=== PATIENT | male | born 1950 | race Caucasian/White ===

== ENCOUNTER 2016-11-20 13:38 | Inpatient (IN) | payer OTHER ==
[~2016-11-20] VITALS: Ht 167.6 cm; Wt 86.2 kg
[~2016-11-20 13:38] MED LIST: INSU1.2I SQ
[2016-11-20 13:40] VITALS: BP 182/88; PULSE 72; RESP 20; TEMP 98.5; O2SAT 99
--- NOTE | 2016-11-20 14:23 | PD ---
Physical Exam Time Seen by Provider: 14:20 Narrative 66 y/o male W/ left flank pain starting this AM. multiple kidney stone in the past, this feels similar. Endorses nausea, chills. Denies testicular/scrotal pain, dysuria. VSS Seen at triage desk. Awaiting bed placement. Data Data Last Documented VS Vital Signs Date Time Temp Pulse Resp B/P Pulse Ox O2 Delivery O2 Flow Rate FiO2 11/20/16 13:40 98.5 72 20 182/88 99 Room Air [facility] Medical Record Reviewed: Yes Supervised Visit with YASMINE: Myron Maharaj November 20, 2016 14:22
[2016-11-20] MEDS ORDERED: SODIUM CHLOR 0.9% 1000 ML INJ 1,000 ML IV SCH (16:48)
--- NOTE | 2016-11-20 16:53 | PD ---
HPI Chief Complaint: Flank/Kidney Pain Time Seen by Provider: 16:50 Travel History International Travel<30 days: No Contact w/Intl Traveler<30days: No Traveled to known affect area: No History of Present Illness HPI 66-year-old male presents to the emergency department for evaluation of left flank pain that started this morning. He states he had a minimal discomfort in his back yesterday which she attributed of possibly sleeping wrong, but started with worsening pain today. He does have a history of obstructive kidney stones with hydronephrosis. He states he does not currently have a urologist. Patient reports diaphoresis and chills, but no documented fevers. No chest pain or shortness of breath. He does have a history of a bowel perforation after with colostomy. He states reversal was attempted several times, but he still has colostomy. Patient states that he passes stones all the time, but this one is more severe than normal. Patient does have history diabetes. PMH of kidney stones, status post cystoscopy with lithotripsy and stent 2015, aortic valve replacement for severe aortic stenosis with bioprosthetic heart valve, ileostomy, hypertension, type 2 diabetes, multiple bowel surgeries. PFSH Past Medical History High Cholesterol: Yes Diabetes: Yes Patient Takes Glucophage: No Gastrointestinal Disorders: Yes (HX COLON RESECTION WITH COLOSTOMY/ ILEOSTOMY) Hypertension: Yes Implanted Vascular Access Dvce: Yes Kidney Stones: Yes Past Surgical History Abdominal Surgery: Yes (Previous ileostomy) Body Medical Devices: cardiac stent pt stated it has since been removed Cardiac Surgery: Yes (Stent and valve replacement) Genitourinary Surgery: Yes (mutiple lithotrpsy) Other Surgery: Yes (COLOSTOMY CLOSURE 06/02) Social History Alcohol Use: Yes (OCCASIOANL) Tobacco Use: Yes (07/26 PPD) Substance Use: No Allergies-Medications (Allergen,Severity, Reaction): Coded Allergies: No Known Allergies (Verified , 11/20/16) Reported Meds & Prescriptions Reported Meds & Active Scripts Active Reported Bystolic (Nebivolol) 10 Mg Tab 10 Mg PO DAILY PRN Tougenia Solostar Pen Inj (Insulin Glargine) 300 Unit/Ml Pen 50 Units SQ DAILY Review of Systems Except as stated in HPI: all other systems reviewed are Neg Physical Exam Narrative GENERAL: Well-nourished, well-developed male patient, ambulatory. Afebrile. SKIN: Focused skin assessment warm/dry. HEAD: Normocephalic. Atraumatic. EYES: No scleral icterus. No injection or drainage. NECK: Supple, trachea midline. No JVD or lymphadenopathy. CARDIOVASCULAR: Regular rate and rhythm without murmurs, gallops, or rubs. RESPIRATORY: Breath sounds equal bilaterally. No accessory muscle use. Lungs sounds are clear to auscultation. GASTROINTESTINAL: Abdomen soft and nondistended. Patient has colostomy noted to right lower quadrant. He has mild tenderness over left upper quadrant. MUSCULOSKELETAL: No cyanosis, or edema. BACK: Nontender without obvious deformity. Left CVA tenderness. Data Data Last Documented VS Vital Signs Date Time Temp Pulse Resp B/P Pulse Ox O2 Delivery O2 Flow Rate FiO2 11/20/16 13:40 98.5 72 20 182/88 99 Room Air Orders Hydromorphone Pf Inj (Dilaudid Pf Inj) (11/20/16 17:00) Complete Blood Count With Diff (11/20/16 16:48) Comprehensive Metabolic Panel (11/20/16 16:48) Lipase (11/20/16 16:48) Urinalysis - C+S If Indicated (11/20/16 16:48) Ct Abd/Pel W/O Iv Contrast (11/20/16 16:48) Iv Access Insert/Monitor (11/20/16 16:48) Ecg Monitoring (11/20/16 16:48) Oximetry (11/20/16 16:48) Ondansetron Inj (Zofran Inj) (11/20/16 17:00) Sodium Chlor 0.9% 1000 Ml Inj (Ns 1000 M (11/20/16 16:48) Sodium Chloride 0.9% Flush (Ns Flush) (11/20/16 17:00) Consult Urology (11/20/16 ) (Hub Use Only)Inp Phy Cons/Ref (11/20/16 ) Hydromorphone Pf Inj (Dilaudid Pf Inj) (11/20/16 19:15) Tamsulosin (Flomax) (11/20/16 19:15) Admit Order (Ed Use Only) (11/20/16 19:19) Labs Laboratory Tests Test 11/20/16 11/20/16 16:50 17:00 White Blood Count 10.8 TH/MM3 Red Blood Count 4.63 MIL/MM3 Hemoglobin 14.3 GM/DL Hematocrit 41.7 % Mean Corpuscular Volume 90.2 FL Mean Corpuscular Hemoglobin 31.0 PG Mean Corpuscular Hemoglobin 34.4 % Concent Red Cell Distribution Width 15.2 % Platelet Count 143 TH/MM3 Mean Platelet Volume 10.3 FL Neutrophils (%) (Auto) 90.3 % Lymphocytes (%) (Auto) 4.4 % Monocytes (%) (Auto) 4.8 % Eosinophils (%) (Auto) 0.2 % Basophils (%) (Auto) 0.3 % Neutrophils # (Auto) 9.7 TH/MM3 Lymphocytes # (Auto) 0.5 TH/MM3 Monocytes # (Auto) 0.5 TH/MM3 Eosinophils # (Auto) 0.0 TH/MM3 Basophils # (Auto) 0.0 TH/MM3 CBC Comment DIFF FINAL Differential Comment Sodium Level 131 MEQ/L Potassium Level 5.3 MEQ/L Chloride Level 102 MEQ/L Carbon Dioxide Level 21.1 MEQ/L Anion Gap 8 MEQ/L Blood Urea Nitrogen 24 MG/DL Creatinine 2.10 MG/DL Estimat Glomerular Filtration 32 ML/MIN Rate Random Glucose 241 MG/DL Calcium Level 9.0 MG/DL Total Bilirubin 0.6 MG/DL Aspartate Amino Transf 31 U/L (AST/SGOT) Alanine Aminotransferase 42 U/L (ALT/SGPT) Alkaline Phosphatase 67 U/L Total Protein 7.9 GM/DL Albumin 4.1 GM/DL Lipase 181 U/L Urine Color YELLOW Urine Turbidity CLEAR Urine pH 5.0 Urine Specific [place] 1.015 Urine Protein 30 mg/dL Urine Glucose (UA) 1000 mg/dL Urine Ketones NEG mg/dL Urine Occult Blood MOD Urine Nitrite NEG Urine Bilirubin NEG Urine Urobilinogen LESS THAN 2.0 MG/DL Urine Leukocyte Esterase NEG Urine RBC 4 /hpf Urine WBC LESS THAN 1 /hpf Urine Squamous Epithelial <1 /hpf Cells Urine Hyaline Casts 1 /lpf Urine Mucus FEW /lpf Microscopic Urinalysis Comment CULT NOT INDICATED MDM Medical Decision Making Medical Screen Exam Complete: Yes Emergency Medical Condition: Yes Medical Record Reviewed: Yes Interpretation(s) Last Impressions Abdomen/Pelvis CT 11/20/16 7048 Signed Impressions: Service Date/Time: Sunday, November 20, 2016 17:51 - CONCLUSION: 1. 1 cm distal left ureteral stone with obstruction. The stone is 2 cm from the UVJ. 2. Nonobstructing right renal calculi. 3. 1.3 cm nodular area of parenchymal consolidation is seen within the left lung base on the very first image of this study. This is incompletely seen. I would suggest a follow up CT of the thorax in 2-3 months. 4. Hepatic steatosis. 5. Prior granulomatous disease. Juancarlos Finley Jr., MD Differential Diagnosis Nephrolithiasis versus urolithiasis versus hydronephrosis Narrative Course 66-year-old male with a past medical history of kidney stones presents to the emergency department for evaluation of left flank pain started today. CBC, CMP , lipase, UA are ordered and pending. CT of the abdomen/pelvis without contrast is ordered and pending. CBC shows no acute abnormality. CMP shows hyperkalemia 5.3, BUN 24, creatinine 2.10, glucose 241. Lipase is 181. UA shows 1000 glucose, moderate occult blood , [address] abdomen/pelvis shows 1 cm distal left ureteral stone with obstruction. The stone is 2 cm from the UVJ. 2. Nonobstructing right renal calculi. 3. 1.3 cm nodular area of parenchymal consolidation is seen within the left lung base on the very first image of this study. This is incompletely seen. I would suggest a follow up CT of the thorax in 2-3 months. 4. Hepatic steatosis. 5. Prior granulomatous disease. Patient is instructed to follow up with primary care physician regarding left lung nodular area. Urology is paged. I spoke with Dr. Grimes, librarian special collections with urology, who will consult on the patient. He would like the patient to be well hydrated and pain control. He believes the patient may pass the stone due to significant history of stones. [facility]. Dr. Hogan accepted admission. Diagnosis Primary Impression: Obstruction of left ureteropelvic junction (UPJ) due to stone Admitting Information Admitting Physician Requests: Admit Jessie Bolden November 20, 2016 16:53
[2016-11-20] MEDS ORDERED: SODIUM CHLORIDE 0.9% FLUSH 10 ML FLUSH IV FLUSH PRN ×2 (17:00→22:30)
[2016-11-20] MEDS ORDERED: ONDANSETRON HCL 4 MG/2 ML VIAL IVP ONE (17:00)
[2016-11-20] MEDS ORDERED: HYDROmorphone HCL PF 1 MG/ML VIAL IV PUSH ONE ×2 (17:00→19:15)
[2016-11-20 17:16] LABS: AUTOMATED NEUTROPHIL # 9.7 TH/MM3 (1.8-7.7); BASOPHIL % 0.3 % (0.0-2.0); EOSINOPHIL % 0.2 % (0.0-4.0); HEMATOCRIT 41.7 % (39.0-51.0); HEMO FLAGS DIFF FINAL; LYMPH % 4.4 % (9.0-44.0); LYMPHOCYTE # 0.5 TH/MM3 (1.0-4.8); MEAN CELL VOLUME 90.2 FL (80.0-100.0); MEAN CORPUSCULAR HGB CONC 34.4 % (32.0-36.0); MONO % 4.8 % (0.0-8.0); NEUT % 90.3 % (16.0-70.0); PLATELET COUNT 143 TH/MM3 (150-450); RED BLOOD COUNT 4.63 MIL/MM3 (4.50-5.90); RED CELL DISTRIBUTION WIDTH 15.2 % (11.6-17.2); WHITE BLOOD COUNT 10.8 TH/MM3 (4.0-11.0)
[2016-11-20 17:22] LABS: BLOOD, URINE MOD (NEG); GLUCOSE,URINE 1000 mg/dL (NEG); HYALINE CAST, URINE 1 /lpf (RARE); KETONE, URINE NEG (NEG); MUCUS URINE FEW /lpf (OCC); NITRITE,URINE NEG (NEG); SQUAMOUS EPITHELIAL CELL URINE <1 /hpf (0-5); URINE COLOR YELLOW (YELLW/STRAW)
[2016-11-20 17:23] LABS: COMMENT (UR) CULT NOT INDICATED; CULTURE IF INDICATED CULT NOT INDICATED
[2016-11-20 17:35] LABS: ALKALINE PHOSPHATASE 67 U/L (45-117); TOTAL BILIRUBIN ADULT 0.6 MG/DL (0.2-1.0)
[2016-11-20 17:39] LABS: ALT (GPT) 42 U/L (12-78); ANION GAP 8 MEQ/L (5-15); AST (GOT) 31 U/L (15-37); BICARBONATE 21.1 MEQ/L (21.0-32.0); BLOOD UREA NITROGEN 24 MG/DL (7-18); CHLORIDE 102 MEQ/L (98-107); GLOMERULAR FILTRATION RATE 32 ML/MIN (>89); POTASSIUM 5.3 MEQ/L (3.5-5.1); SODIUM (NA) 131 MEQ/L (136-145)
[2016-11-20] MEDS ORDERED: BYST10TA2 PO (17:47)
--- NOTE | 2016-11-20 18:07 | RADRPT ---
EXAM DATE/TIME: 11/20/2016 17:51 [facility] COMPARISON: CT ABDOMEN & PELVIS W/O CONTRAST, October 14, 2015, 17:16. CT ABDOMEN & PELVIS W/O CONTRAST, January 27, 2016, 19:37. INDICATIONS : Left flank pain with nausea. ORAL CONTRAST: No oral contrast ingested. RADIATION DOSE: 17.36 CTDIvol (mGy) MEDICAL HISTORY : Cardiovascular disease. Hypertension. Diabetes mellitus type 2. SURGICAL HISTORY : None. ENCOUNTER: Initial ACUITY: 1 day PAIN SCALE: 8/10 LOCATION: Left flank TECHNIQUE: Volumetric scanning of the abdomen and pelvis was performed. Using automated exposure control and ad justment of the mA and/or kV according to patient size, radiation dose was kept as low as reasonably achievable to obtain optimal diagnostic quality images. FINDINGS: LOWER LUNGS: Calcified granulomas are seen involving the lung bases bilaterally. Mild bronchiectasis observed as w ell. A rounded area of parenchymal consolidation is seen on the very first image of the exam. This me asures 1.3 cm in diameter. The heart is mildly enlarged. No pericardial effusion. Mild coronary arter y atherosclerotic calcifications. LIVER: The liver is diffusely low in attenuation. A 2.5 cm cyst is long-term stable adjacent to the falcifor m ligament. Hounsfield units are 5. No mass or ductal dilatation. Gallbladder is well distended but w ithout pericholecystic fluid or gallbladder wall thickening. No calcified stones. Focal fatty sparing is seen adjacent to the gallbladder fossa. SPLEEN: Normal size without lesion. PANCREAS: Within normal limits. KIDNEYS: There is a 1 cm distal left ureteral stone occurring 2 cm from the UVJ. This results in moderate hydr onephrosis and hydroureter. There is perinephric stranding on the left without abscess. Bilateral luigi al calculi are observed. These are nonobstructing on the right. Scattered 1-2 mm stones are seen on t he right. On the left the largest stone measures 7 mm within the lower pole. ADRENAL GLANDS: Within normal limits. VASCULAR: There is no aortic aneurysm. BOWEL/MESENTERY: Near-complete hemicolectomy. Right lower quadrant ileostomy. No free air or free fluid. ABDOMINAL WALL: Within normal limits. RETROPERITONEUM: There is no lymphadenopathy. BLADDER: No wall thickening or mass. REPRODUCTIVE: Within normal limits. INGUINAL: There is no lymphadenopathy or hernia. MUSCULOSKELETAL: Within normal limits for patient age. CONCLUSION: 1. 1 cm distal left ureteral stone with obstruction. The stone is 2 cm from the UVJ. 2. Nonobstructing right renal calculi. 3. 1.3 cm nodular area of parenchymal consolidation is seen within the left lung base on the very fir st image of this study. This is incompletely seen. I would suggest a follow up CT of the thorax in 2- 3 months. 4. Hepatic steatosis. 5. Prior granulomatous disease. Juancarlos Finley Jr., MD on November 20, 2016 at 18:00 Board Certified Radiologist. This report was verified electronically.
[2016-11-20] MEDS ORDERED: TAMSULOSIN HCL 0.4 MG CAP PO ONE (19:15)
[2016-11-20 20:40] VITALS: BP 145/88; PULSE 93; RESP 18; O2SAT 98
[2016-11-20 20:41] VITALS: O2SAT 98
[2016-11-20] MEDS ORDERED: BISACODYL 10 MG SUPP RECTAL PRN (22:30)
[2016-11-20] MEDS ORDERED: ONDANSETRON HCL 4 MG/2 ML VIAL IVP PRN (22:30)
[2016-11-20] MEDS ORDERED: NEBIVOLOL 10 MG TAB PO PRN (22:30)
[2016-11-20] MEDS ORDERED: NALOXONE HCL 0.4 MG/ML AMP IV PRN (22:30)
--- NOTE | 2016-11-20 22:33 | HHI.HP ---
HPI Service [facility] Hospitalists Primary Care Physician Anthony Gates III, MD Admission Diagnosis 1 cm distal ureteral stone with obstruction Chief Complaint: left flank pain Travel History International Travel<30 Days: No Contact w/Intl Traveler <30 Da: No Traveled to Known Affected Are: No History of Present Illness 66-year-old male presents to the emergency department for evaluation of left flank pain that started this morning. He states he had a minimal discomfort in his back yesterday which she attributed of possibly sleeping wrong, but started with worsening pain today. He does have a history of obstructive kidney stones with hydronephrosis. He states he does not currently have a urologist. Patient reports diaphoresis and chills, but no documented fevers. No chest pain or shortness of breath. He does have a history of a bowel perforation after with colostomy. He states reversal was attempted several times, but he still has colostomy. Patient states that he passes stones all the time, but this one is more severe than normal. Patient does have history diabetes. PMH of kidney stones, status post cystoscopy with lithotripsy and stent 2015, aortic valve replacement for severe aortic stenosis with bioprosthetic heart valve, ileostomy, hypertension, type 2 diabetes, multiple bowel surgeries Patient has been unable to pass stone ,urology called and will continue hydration pain control and they will consult. Review of Systems Other flank pain nausea Past Family Social History Past Medical History dm,hypertension,cardiac stent in past Past Surgical History colostomy due to bowel perferation in past ,multiple lithotrpsy Reported Medications bystolic 10,toujeopen Allergies: Coded Allergies: No Known Allergies (Verified , 11/20/16) Social History smokes 1/4 ppd occasional etoh Physical Exam Vital Signs Vital Signs Date Time Temp Pulse Resp B/P Pulse Ox O2 Delivery O2 Flow Rate FiO2 11/20/16 20:41 98 Room Air 11/20/16 20:40 93 18 145/88 98 Room Air 11/20/16 13:40 98.5 72 20 182/88 99 Room Air Physical Exam GENERAL: This is a well-nourished, well-developed patient, in no apparent distress. SKIN: No rashes, ecchymoses or lesions. Cool and dry. HEAD: Atraumatic. Normocephalic. No temporal or scalp tenderness. EYES: Pupils equal round and reactive. Extraocular motions intact. No scleral icterus. No injection or drainage. ENT: Nose without bleeding, purulent drainage or septal hematoma. Throat without erythema, tonsillar hypertrophy or exudate. Uvula midline. Airway patent. NECK: Trachea midline. No JVD or lymphadenopathy. Supple, nontender, no meningeal signs. CARDIOVASCULAR: Regular rate and rhythm without murmurs, gallops, or rubs. RESPIRATORY: Clear to auscultation. Breath sounds equal bilaterally. No wheezes , rales, or rhonchi. GASTROINTESTINAL: Abdomen soft, tender left flank, nondistended. No hepato- splenomegaly, or palpable masses. No guarding. MUSCULOSKELETAL: Extremities without clubbing, cyanosis, or edema. No joint tenderness, effusion, or edema noted. No calf tenderness. Negative Homans sign bilaterally. NEUROLOGICAL: Awake and alert. Cranial nerves II through XII intact. Motor and sensory grossly within normal limits. Five out of 5 muscle strength in all muscle groups. Normal speech. Laboratory Laboratory Tests Test 11/20/16 11/20/16 16:50 17:00 White Blood Count 10.8 Red Blood Count 4.63 Hemoglobin 14.3 Hematocrit 41.7 Mean Corpuscular Volume 90.2 Mean Corpuscular Hemoglobin 31.0 Mean Corpuscular Hemoglobin 34.4 Concent Red Cell Distribution Width 15.2 Platelet Count 143 Mean Platelet Volume 10.3 Neutrophils (%) (Auto) 90.3 Lymphocytes (%) (Auto) 4.4 Monocytes (%) (Auto) 4.8 Eosinophils (%) (Auto) 0.2 Basophils (%) (Auto) 0.3 Neutrophils # (Auto) 9.7 Lymphocytes # (Auto) 0.5 Monocytes # (Auto) 0.5 Eosinophils # (Auto) 0.0 Basophils # (Auto) 0.0 CBC Comment DIFF FINAL Differential Comment Sodium Level 131 Potassium Level 5.3 Chloride Level 102 Carbon Dioxide Level 21.1 Anion Gap 8 Blood Urea Nitrogen 24 Creatinine 2.10 Estimat Glomerular Filtration 32 Rate Random Glucose 241 Calcium Level 9.0 Total Bilirubin 0.6 Aspartate Amino Transf 31 (AST/SGOT) Alanine Aminotransferase 42 (ALT/SGPT) Alkaline Phosphatase 67 Total Protein 7.9 Albumin 4.1 Lipase 181 Urine Color YELLOW Urine Turbidity CLEAR Urine pH 5.0 Urine Specific [place] 1.015 Urine Protein 30 Urine Glucose (UA) 1000 Urine Ketones NEG Urine Occult Blood MOD Urine Nitrite NEG Urine Bilirubin NEG Urine Urobilinogen LESS THAN 2.0 Urine Leukocyte Esterase NEG Urine RBC 4 Urine WBC LESS THAN 1 Urine Squamous Epithelial <1 Cells Urine Hyaline Casts 1 Urine Mucus FEW Microscopic Urinalysis Comment CULT NOT INDICATED Result Diagram: 11/20/16 1650 11/20/16 1650 Imaging Last 24 hours Impressions Abdomen/Pelvis CT 11/20/16 1648 Signed Impressions: Service Date/Time: Sunday, November 20, 2016 17:51 - CONCLUSION: 1. 1 cm distal left ureteral stone with obstruction. The stone is 2 cm from the UVJ. 2. Nonobstructing right renal calculi. 3. 1.3 cm nodular area of parenchymal consolidation is seen within the left lung base on the very first image of this study. This is incompletely seen. I would suggest a follow up CT of the thorax in 2-3 months. 4. Hepatic steatosis. 5. Prior granulomatous disease. Juancarlos Finley Jr., MD Course in er given pain meds Assessment and Plan Problem List: (1) Obstruction of left ureteropelvic junction (UPJ) due to stone Status: Acute Plan: iv pain meds consult urology (2) Hypertension Status: Chronic Plan: continue home med (3) DM (diabetes mellitus) Status: Chronic Plan: continue home med Assessment and Plan further plan pending urology evaluation Code Status full Discussed Condition With patient Physician Certification 2 Midnight Certification Type: Admission for Inpatient Services Order for Inpatient Services The services are ordered in accordance with Medicare regulations or non- Medicare payer requirements, as applicable. In the case of services not specified as inpatient-only, they are appropriately provided as inpatient services in accordance with the 2-midnight benchmark. Estimated LOS (days): 2 2 days is the estimated time the patient will need to remain in the hospital, assuming treatment plan goals are met and no additional complications. Post-Hospital Plan: Not yet determined Mt Schulz MD November 20, 2016 22:33
[2016-11-20] MEDS ORDERED: GLUCAGON 1 MG/ML VIAL OTHER PRN (22:45)
[2016-11-20] MEDS ORDERED: DEXTROSE 50% IN WATER 50 ML VIAL(D50) IV PUSH PRN (22:45)
[2016-11-20 23:01] VITALS: BP 138/80; PULSE 80; RESP 18; O2SAT 98
[2016-11-21] VITALS (8 sets, daily range): BP systolic 126–140; BP diastolic 74–91; PULSE 78–88; RESP 16–18; TEMP 98.6–99.1; O2SAT 96–97
[2016-11-21] MEDS: SODIUM CHLOR 0.45% 1000 ML INJ 1,000 ML IV SCH ×2 (00:29→21:24)
[2016-11-21] MEDS: HYDROmorphone HCL PF 1 MG/ML VIAL IV PRN ×4 (01:36→22:22)
[2016-11-21 06:55] LABS: AUTOMATED NEUTROPHIL # 5.1 TH/MM3 (1.8-7.7); BASOPHIL % 0.2 % (0.0-2.0); EOSINOPHIL # 0.1 TH/MM3 (0-0.4); EOSINOPHIL % 1.3 % (0.0-4.0); HEMATOCRIT 37.5 % (39.0-51.0); HEMO FLAGS DIFF FINAL; LYMPH % 13.6 % (9.0-44.0); LYMPHOCYTE # 0.9 TH/MM3 (1.0-4.8); MEAN CORPUSCULAR HEMOGLOBIN 30.6 PG (27.0-34.0); MONO % 9.2 % (0.0-8.0); NEUT % 75.7 % (16.0-70.0); PLATELET COUNT 113 TH/MM3 (150-450); RED BLOOD COUNT 4.16 MIL/MM3 (4.50-5.90); WHITE BLOOD COUNT 6.7 TH/MM3 (4.0-11.0)
[2016-11-21] MEDS ORDERED: INSULIN ASPART SUPPLEMENTAL SCALE SQ SCH (07:00)
[2016-11-21 07:23] LABS: BICARBONATE 20.1 MEQ/L (21.0-32.0); POTASSIUM 4.1 MEQ/L (3.5-5.1)
[2016-11-21] MEDS: SODIUM CHLORIDE 0.9% FLUSH 10 ML FLUSH IV FLUSH SCH ×2 (08:57→21:23)
[2016-11-21] MEDS ORDERED: INSULIN GLARGINE SQ SCH (09:00)
--- NOTE | 2016-11-21 10:47 | HHI.PR ---
Subjective Remarks more comfortable. hasn't passed the stone. Objective Vitals heent neg heart reg lung cta abd s/nt ext no edema Vital Signs Date Time Temp Pulse Resp B/P Pulse Ox O2 Delivery O2 Flow Rate FiO2 11/21/16 09:27 18 11/21/16 08:32 98.6 78 16 138/88 96 11/21/16 07:00 79 11/21/16 05:00 98.8 78 16 140/91 96 11/21/16 01:00 99.1 80 16 126/74 97 11/20/16 23:01 80 18 138/80 98 Room Air 11/20/16 20:41 98 Room Air 11/20/16 20:40 93 18 145/88 98 Room Air 11/20/16 13:40 98.5 72 20 182/88 99 Room Air 11/20/16 11/20/16 11/21/16 15:00 23:00 07:00 Intake Total 590 ml Output Total 320 ml Balance 270 ml Intake Oral 240 ml IV Total 350 ml Output Urine Total 320 ml Result Diagram: 11/21/16 0536 11/21/16 0536 Imaging Last 24 hours Impressions Abdomen/Pelvis CT 11/20/16 1648 Signed Impressions: Service Date/Time: Sunday, November 20, 2016 17:51 - CONCLUSION: 1. 1 cm distal left ureteral stone with obstruction. The stone is 2 cm from the UVJ. 2. Nonobstructing right renal calculi. 3. 1.3 cm nodular area of parenchymal consolidation is seen within the left lung base on the very first image of this study. This is incompletely seen. I would suggest a follow up CT of the thorax in 2-3 months. 4. Hepatic steatosis. 5. Prior granulomatous disease. Juancarlos Finley Jr., MD A/P Problem List: (1) Obstruction of left ureteropelvic junction (UPJ) due to stone Status: Acute Plan: Pt has dm2, hx AVR, ostomy, nephrolithiasis, ckd 3. Presents with flank pain and has obstructing kidney stone left ureter. Also ct showed 1.3cm left lower lobe nodular area incompletely evaluated. IVF hydration pain control flomax urology consult pending. ssi and diabetic diet. resume basal as tolerated discussed lung nodule with pt and will plan to call pcp and have f/u evaluation. (2) Hypertension Status: Chronic Plan: continue home med (3) DM (diabetes mellitus) Status: Chronic Plan: continue home med Jj Klein MD November 21, 2016 10:47
[2016-11-21] MEDS: INSULIN ASPART SUPPLEMENTAL SCALE SQ SCH ×3 (11:44→21:23)
[2016-11-21] MEDS ORDERED: TAMSULOSIN HCL 0.4 MG CAP PO ONE (12:00)
--- NOTE | 2016-11-21 20:52 | MB ---
cc: ISRAEL SPARROW MD DATE OF CONSULTATION 11/21/2016 REASON FOR CONSULTATION This gentleman presented to the emergency room for evaluation of left flank pain that started early on the morning of November 20. 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 He evidently has been seen by my partner Dr. Brown in the past and he subsequently has been seen by Dr. Aparicio who is no longer here at [facility] and about a year ago was seen by Dr. Agustin Keane who extracted a calculus and placed a stent. And he did have a follow-up appointment with Dr. Keane which he did not keep. So while the gentleman does pass stones, he states that this one has given more difficulty than others. Additionally he has had a history of severe aortic stenosis for which he underwent aortic valve replacement. He was given Dilaudid according to the emergency room physician with whom I spoke last evening and that seemed to have taken care of his severe discomfort. The stone appears to about 1.1 cm a good couple of inches north of left distal ureteral orifice so the odds of it passing on its own are rather negligible. However, this gentleman will labor at this for another 24 hours but we both agree after discussion that if he has not passed it by tomorrow afternoon the odds are pretty good that he will not and thus we will need to subject him to cystoscopic examination under anesthesia and probable stent placement, although basketing or ureteroscopic extraction can be attempted at that time. PHYSICAL EXAMINATION GENERAL: On physical exam here this afternoon the gentleman is was lying actually rather comfortably not in any acute distress at the moment. He is tolerating diet at the bedside. He has been seeing Dr. Edilberto Klein as his attending physician while here and he is under the care of Dr Mt Schulz his attending physician at [facility]. So our plan is to see how he does through the night. If he does not pass the stone by relatively early in the morning, then we will make him n.p.o. then and we will subject him to the above mentioned cystoscopic examination. MD ALEAH Araujo/KK /6:08 PM /8:29 PM
[2016-11-21] MEDS: INSULIN DETEMIR 100 UNITS/ML VIAL SQ SCH (21:23)
[2016-11-22] VITALS: BP 136/68; PULSE 74; RESP 18; TEMP 98.6; O2SAT 96
[2016-11-22] MEDS: SODIUM CHLOR 0.45% 1000 ML INJ 1,000 ML IV SCH ×2 (01:06→14:01)
[2016-11-22 04:00] VITALS: BP 128/78; PULSE 80; RESP 18; TEMP 98.4; O2SAT 96
[2016-11-22] MEDS: INSULIN ASPART SUPPLEMENTAL SCALE SQ SCH ×4 (06:20→21:00)
[2016-11-22 07:00] VITALS: BP 130/89; PULSE 76; RESP 18; TEMP 98.3; O2SAT 96
[2016-11-22] MEDS: SODIUM CHLORIDE 0.9% FLUSH 10 ML FLUSH IV FLUSH SCH ×2 (09:00→21:00)
[2016-11-22] MEDS: TAMSULOSIN HCL 0.4 MG CAP PO SCH (09:20)
[2016-11-22] MEDS: INSULIN DETEMIR 100 UNITS/ML VIAL SQ SCH ×2 (09:21→21:00)
--- NOTE | 2016-11-22 09:53 | HHI.PR ---
Subjective Remarks hasn't passed stone yet. Objective Vitals comfortable heart reg lung cta abd s/nt ext no edema Vital Signs Date Time Temp Pulse Resp B/P Pulse Ox O2 Delivery O2 Flow Rate FiO2 11/22/16 07:00 98.3 76 18 130/89 96 11/22/16 04:00 98.4 80 18 128/78 96 11/22/16 00:00 98.6 74 18 136/68 96 11/21/16 22:52 20 11/21/16 20:00 99.0 88 18 130/83 97 11/21/16 15:24 98.7 78 16 128/78 96 11/21/16 15:24 88 11/21/16 12:00 98.8 78 16 140/88 96 11/21/16 11:00 86 11/21/16 11/21/16 11/22/16 15:00 23:00 07:00 Intake Total 1525 ml 1884 ml Output Total 750 ml 750 ml Balance 775 ml 1134 ml Intake Oral 975 ml 960 ml IV Total 550 ml 924 ml Output Urine Total 750 ml 750 ml # Bowel Movements 0 Result Diagram: 11/21/16 0536 11/21/16 0536 Imaging Last 24 hours Impressions Abdomen/Pelvis CT 11/20/16 1648 Signed Impressions: Service Date/Time: Sunday, November 20, 2016 17:51 - CONCLUSION: 1. 1 cm distal left ureteral stone with obstruction. The stone is 2 cm from the UVJ. 2. Nonobstructing right renal calculi. 3. 1.3 cm nodular area of parenchymal consolidation is seen within the left lung base on the very first image of this study. This is incompletely seen. I would suggest a follow up CT of the thorax in 2-3 months. 4. Hepatic steatosis. 5. Prior granulomatous disease. Juancarlos Finley Jr., MD A/P Problem List: (1) Obstruction of left ureteropelvic junction (UPJ) due to stone Status: Acute Plan: Pt has dm2, hx AVR, ostomy, nephrolithiasis, ckd 3. Presents with flank pain and has obstructing kidney stone left ureter. Also ct showed 1.3cm left lower lobe nodular area incompletely evaluated. IVF hydration pain control flomax urology planning cysto later today. ssi and diabetic diet. resume basal as tolerated discussed lung nodule with pt and will plan to call pcp and have f/u evaluation. ADDENDUM: SPOKE TO DR HICKEY WHO WILL F/U THE LUNG NODULE AND PROBABLY ORDER PET/CT. PT HAS COPY OF REPORT. (2) Hypertension Status: Chronic Plan: continue home med (3) DM (diabetes mellitus) Status: Chronic Plan: continue home med Jj Klein MD November 22, 2016 09:53
[2016-11-22 11:00] VITALS: BP 145/91; PULSE 72; RESP 18; TEMP 98.2; O2SAT 95
[2016-11-22] MEDS: HYDROmorphone HCL PF 1 MG/ML VIAL IV PRN ×3 (12:40→21:56)
[2016-11-22] MEDS ORDERED: ceFAZolin 1,000 MG/NS 100 ML IV SCH ×2 (14:15)
[2016-11-22] MEDS ORDERED: ePHEDrine/NS 25 MG/5 ML SYR IV ONE (14:54)
[2016-11-22] MEDS ORDERED: PROPOFOL 200 MG/20 ML AMP IV ONE (14:54)
[2016-11-22 15:00] VITALS: BP 149/98; PULSE 70; RESP 18; TEMP 98.1; O2SAT 96
[2016-11-22] MEDS ORDERED: METOCLOPRAMIDE HCL 10 MG/2 ML VIAL ONE (18:13)
[2016-11-22] MEDS ORDERED: FAMOTIDINE 20 MG/2 ML VIAL ONE (18:13)
[2016-11-22] MEDS ORDERED: MIDAZOLAM HCL 2 MG/2 ML VIAL ONE (18:13)
[2016-11-22] MEDS ORDERED: ONDANSETRON HCL 4 MG/2 ML VIAL ONE (18:14)
[2016-11-22] MEDS ORDERED: DO NOT ADM ANY ANTICOAGULANT DRUGS PRN (19:22)
[2016-11-22 20:00] VITALS: BP 162/94; PULSE 79; RESP 20; TEMP 97.8; O2SAT 100
[2016-11-23] VITALS: BP 129/77; PULSE 76; RESP 18; TEMP 97.1; O2SAT 98
[2016-11-23] MEDS: HYDROmorphone HCL PF 1 MG/ML VIAL IV PRN ×3 (02:57→11:05)
[2016-11-23] MEDS: SODIUM CHLOR 0.45% 1000 ML INJ 1,000 ML IV SCH (03:46)
[2016-11-23] MEDS: INSULIN ASPART SUPPLEMENTAL SCALE SQ SCH ×2 (06:14→12:11)
--- NOTE | 2016-11-23 07:34 | MP ---
cc: ISRAEL SPARROW MD DATE OF SURGERY November 22, 2016 PREOPERATIVE DIAGNOSIS Left lower-third ureteral calculus. POSTOPERATIVE DIAGNOSIS Left lower-third ureteral calculus. PROCEDURE PERFORMED Cystoscopy with left double-J stent insertion, 6-Bangladeshi x 22-cm. SURGEON MD Cornelio ANESTHESIA General. NOTE IN DETAIL This 66-year-old gentleman has been seen by various urologists over the last few years. He has had problems with stones since having undergone an ileostomy a few years ago, all from the left side. Usually is able to pass them. A few interventions have been required. My understanding is that Dr. Brown, Dr. Aparicio, Dr. Keane have all had to intervene in the past. In any event, this stone is a bit large. I did not look like it was going to pass. He gave it a college try for the last 48 hours, has had quite a bit of pain medication. We felt that it was appropriate to go ahead and placed a double-J stent. So he was taken to the [facility] having received appropriate preoperative antibiotics. A time-out was then taken for identification purposes. He was then placed in the dorsal lithotomy position, prepped and draped in a sterile fashion. A rigid scope was passed. His bladder is actually quite clean. The left ureteral orifice is easily identified. A guide wire is then placed up through and past the stone, on into the left renal pelvis. Over this, a 6-Bangladeshi x 22 cm double-J stent was placed. I we had problems with the fluoroscope, however, I was able to confirmed fluoroscopically that we had good pigtail formation in the left renal pelvis. Likewise, under visual inspection I was able to document good pigtail formation in the bladder. The bladder was then drained. He tolerated the procedure well, was returned to the recovery room in stable condition. MD ALEAH Araujo/KARINA /7:18 PM /7:21 AM
[2016-11-23 08:00] VITALS: BP 153/89; PULSE 79; RESP 20; TEMP 97.9; O2SAT 97
[2016-11-23] MEDS: INSULIN DETEMIR 100 UNITS/ML VIAL SQ SCH (08:44)
[2016-11-23] MEDS: TAMSULOSIN HCL 0.4 MG CAP PO SCH (08:44)
[2016-11-23] MEDS: SODIUM CHLORIDE 0.9% FLUSH 10 ML FLUSH IV FLUSH SCH (08:44)
[2016-11-23] MEDS ORDERED: TAMS5CAP PO (11:41)
--- NOTE | 2016-11-23 11:47 | HHI.DCPOC ---
Discharge Care Plan Diagnosis: (1) Obstruction of left ureteropelvic junction (UPJ) due to stone (2) DM (diabetes mellitus) (3) Hypertension Goals to Promote Your Health - Patient is to followup with Dr. Grimes, on Sunday11/27/16. His office will call with appt time. If you don't hear from them by 11/24/16, call their office to obtain appointment time. Directions to Meet Your Goals Take your medications as prescribed Follow your dietary instruction Follow activity as directed Keep your appointments as scheduled Take your immunizations and boosters as scheduled If your symptoms worsen call your PCP, if no PCP go to Urgent Care Center or Emergency Room Smoking is Dangerous to Your Health. Avoid second hand smoke Call the 24-hour hour crisis hotline for domestic abuse at Rachel Crane November 23, 2016 11:47
[2016-11-23 12:00] VITALS: BP 159/90; PULSE 73; RESP 18; TEMP 98.3; O2SAT 97
--- NOTE | 2016-11-23 12:02 | HHI.DS ---
Discharge Summary Admission Date November 20, 2016 at 19:20 Discharge Date: November 23, 2016 Admitting Diagnosis 1 cm distal ureteral stone with obstruction (1) Obstruction of left ureteropelvic junction (UPJ) due to stone Diagnosis: Principal (2) Hypertension Diagnosis: Secondary (3) DM (diabetes mellitus) Diagnosis: Secondary (4) Lung nodule Diagnosis: Secondary Consultants Dr. Buster Grimes - Urology Brief History 66-year-old male presents to the emergency department for evaluation of left flank pain that started this morning. He states he had a minimal discomfort in his back yesterday which she attributed of possibly sleeping wrong, but started with worsening pain today. He does have a history of obstructive kidney stones with hydronephrosis. He states he does not currently have a urologist. Patient reports diaphoresis and chills, but no documented fevers. No chest pain or shortness of breath. He does have a history of a bowel perforation after with colostomy. He states reversal was attempted several times, but he still has colostomy. Patient states that he passes stones all the time, but this one is more severe than normal. Patient does have history diabetes. PMH of kidney stones, status post cystoscopy with lithotripsy and stent 2015, aortic valve replacement for severe aortic stenosis with bioprosthetic heart valve, ileostomy, hypertension, type 2 diabetes, multiple bowel surgeries Patient has been unable to pass stone ,urology called and will continue hydration pain control and they will consult. CBC/BMP: 11/21/16 0536 11/21/16 0536 Significant Findings Laboratory Tests Test 11/20/16 11/20/16 11/21/16 16:50 17:00 05:36 Platelet Count 143 TH/MM3 113 TH/MM3 (150-450) (150-450) Neutrophils (%) (Auto) 90.3 % 75.7 % (16.0-70.0) (16.0-70.0) Lymphocytes (%) (Auto) 4.4 % (9.0-44.0) Neutrophils # (Auto) 9.7 TH/MM3 (1.8-7.7) Lymphocytes # (Auto) 0.5 TH/MM3 0.9 TH/MM3 (1.0-4.8) (1.0-4.8) Sodium Level 131 MEQ/L (136-145) Potassium Level 5.3 MEQ/L (3.5-5.1) Blood Urea Nitrogen 24 MG/DL (7-18) 23 MG/DL (7-18) Creatinine 2.10 MG/DL 2.28 MG/DL (0.60-1.30) (0.60-1.30) Estimat Glomerular Filtration 32 ML/MIN (>89) 29 ML/MIN (>89) Rate Random Glucose 241 MG/DL 212 MG/DL (74-106) (74-106) Urine Protein 30 mg/dL (NEG-TRACE) Urine Glucose (UA) 1000 mg/dL (NEG) Urine Occult Blood MOD (NEG) Urine RBC 4 /hpf (0-3) Urine Mucus FEW /lpf (OCC) Red Blood Count 4.16 MIL/MM3 (4.50-5.90) Hemoglobin 12.7 GM/DL (13.0-17.0) Hematocrit 37.5 % (39.0-51.0) Monocytes (%) (Auto) 9.2 % (0.0-8.0) Carbon Dioxide Level 20.1 MEQ/L (21.0-32.0) Calcium Level 8.2 MG/DL (8.5-10.1) Imaging Last Impressions Abdomen/Pelvis CT 11/20/16 1648 Signed Impressions: Service Date/Time: Sunday, November 20, 2016 17:51 - CONCLUSION: 1. 1 cm distal left ureteral stone with obstruction. The stone is 2 cm from the UVJ. 2. Nonobstructing right renal calculi. 3. 1.3 cm nodular area of parenchymal consolidation is seen within the left lung base on the very first image of this study. This is incompletely seen. I would suggest a follow up CT of the thorax in 2-3 months. 4. Hepatic steatosis. 5. Prior granulomatous disease. Juancarlos Finley Jr., MD Hospital Course Pt has DM2, hx AVR, ostomy, nephrolithiasis, and CKD 3. Pt presented to the ED with flank pain and was found to have an obstructing kidney stone in the left ureter. CT also showed 1.3cm left lower lung lobe nodular area incompletely evaluated. Pt was given IVF hydration and pain control. He was started on Flomax. Urology was consulted and pt underwent cystoscopy with left double J stent insertion on 11/22/[address] Grimes. Pt will be continued on the Flomax and will followup on 11/27/[address] Grimes's office for outpt stone extraction. The results of the CT were discussed regarding the lung nodule with pt and he will f/u with his PCP to have f/u evaluation. Pt Condition on Discharge: Stable Discharge Disposition: Discharge Home Discharge Instructions DIET: Follow Instructions for: Heart Healthy Diet Activities you can perform: Regular-No Restrictions Follow up Referrals: Urology - 11/27/16 with Buster Grimes MD New Medications: Tamsulosin (Flomax) 0.4 Mg Cap 0.4 MG PO DAILY ureteral stone Days 30 CAP Continued Medications: Insulin Glargine Inj (Toujeo Solostar Pen Inj) 300 Unit/Ml Pen 50 UNITS SQ DAILY Blood Sugar Management Ref 0 PEN Nebivolol (Bystolic) 10 Mg Tab 10 MG PO DAILY PRN PALPITATIONS #30 Ref 0 TAB Rachel Crane November 23, 2016 12:02 Jj Klein MD November 23, 2016 12:38
[2016-11-23] MEDS ORDERED: NORC5TAB PO (12:37)
[2016-11-23 14:12] VITALS: O2SAT 97
== END 2016-11-23 14:17 | disposition home or self-care (01) | DRG 694 ==
LOC: NEPC 13:38 → NEDA 19:20 → OBSVTOIN 19:20 → NEDH 23:20 → HCIS 11-21 00:36 → N07B 11-22 19:34 → N07A 11-22 21:21
PROVIDERS: ADMIT Hospitalist; ATTEND Hospitalist
PROC: 0T778DZ Dilation of Left Ureter with Intraluminal Device, Via Natural or Artificial Opening Endoscopic (ICD-10-PCS; principal; 2016-11-22 18:39)
DX: N13.2 Hydronephrosis with renal and ureteral calculous obstruction (principal); E11.22 Type 2 diabetes mellitus with diabetic chronic kidney disease; K76.0 Fatty (change of) liver, not elsewhere classified; N18.3 Chronic kidney disease, stage 3 (moderate); I12.9 Hypertensive chronic kidney disease with stage 1 through stage 4 chronic kidney disease, or unspecified chronic kidney disease; Z87.442 Personal history of urinary calculi; Z93.3 Colostomy status; Z95.3 Presence of xenogenic heart valve; E78.00 Pure hypercholesterolemia, unspecified; F17.210 Nicotine dependence, cigarettes, uncomplicated; Z95.5 Presence of coronary angioplasty implant and graft; R91.1 Solitary pulmonary nodule
CPT/HCPCS: 74176; 76937; 80048; 80053; 81001; 82948; 83690; 85025; 96374; 96375; C2617; J0690; J1170; J1815; J2250; J2405; J2765; J3010; J7030